=== PATIENT | male | born 1985 | race Caucasian/White ===

== ENCOUNTER 2017-12-31 09:58 | Inpatient (IN) ==
[2017-12-31] MEDS ORDERED: Acetaminophen 325 MG Tablet PO ONE (11:32)
--- NOTE | 2017-12-31 11:56 | XR ---
EXAM DATE: 12/31/2017 11:49 AM EDT AGE/SEX: 32 years / Male INDICATIONS: . Shortness of breath, headache, bilateral chest pain, cough, and congestion. CLINICAL DATA: This is the patient's initial encounter. Patient reports that signs and symptoms have been present for 2 days and indicates a pain score of 5/10. MEDICAL/SURGICAL HISTORY: None. None. COMPARISON: No prior exams available for comparison. FINDINGS: PA and lateral views of the chest demonstrate the lungs to be symmetrically aerated without evidence of mass, infiltrate or effusion. The cardiomediastinal contours are unremarkable. Osseous structures are intact. CONCLUSION: Negative for acute process Electronically signed by: Cornell Edmonds MD 12/31/2017 11:54 AM EDT
--- NOTE | 2017-12-31 12:01 | ED ---
HPI General Chief complaint: Respiratory Symptoms Stated complaint: resp complaint/weak Time Seen by Provider: 12/31/17 11:27 Source: patient Mode of arrival: ambulatory Limitations: no limitations History of Present Illness HPI narrative: Patient is a 32 year old male who comes in complaining of cough and cold symptoms with fever and body aches. He says this started yesterday. He has not taken anything for his symptoms. He says his girlfriend was sick with similar symptoms. He says he has some pain to his chest when coughing. He denies abdominal pain, nausea or vomiting. He does admit to IVDA. He last used meth yesterday. He denies any shortness of breath. Severity is moderate. Related Data Home Medications Medication Instructions Recorded Confirmed No Known Home Medications 12/06/17 12/31/17 Allergies Allergy/AdvReac Type Severity Reaction Status Date / Time No Known Allergies Allergy Verified 12/31/17 11:29 Review of Systems ROS: all other systems reviewed are negative Constitutional Reports body ache(s), Reports chills and Reports fever(s) ENT Denies dizziness Cardiovascular Denies syncope Respiratory Reports cough Gastrointestinal Denies nausea and Denies vomiting Musculoskeletal Reports myalgias Integumentary/Breasts Denies lesions, Denies rash and Denies wounds Neurologic Denies focal weakness and Denies numbness PMFSH History History Provided By: Patient Medical History Medical History IVDU (intravenous drug user) (Acute) Patient denies medical problems (Acute) Social History Social History Substance History: Active Abuse Second Hand Smoke Exposure: No Smoking Status: Current every day smoker Tobacco Type: Cigarettes How Often Do You Have a Drink Containing Alcohol: Monthly or less Recent Travel in [facility] within the Last 8 Weeks: No Recent Out of Country Travel within the Last 8 Weeks: No Exam Narrative Exam Narrative: GENERAL: Awake and alert, in no acute distress. SKIN: Focused skin assessment warm/dry. No wounds or signs of infection. HEAD: Atraumatic. Normocephalic. EYES: Pupils equal and round. No scleral icterus. ENT: Mucous membranes pink and moist. NECK: Trachea midline. No JVD. CARDIOVASCULAR: Regular rate and rhythm. No murmur appreciated. RESPIRATORY: No accessory muscle use. Clear to auscultation. Breath sounds equal bilaterally. GASTROINTESTINAL: Abdomen soft, non-tender, nondistended. MUSCULOSKELETAL: No obvious deformities. No clubbing. No cyanosis. No edema. NEUROLOGICAL: Awake and alert. No obvious cranial nerve deficits. Motor grossly within normal limits. Normal speech. PSYCHIATRIC: Appropriate mood and affect; insight and judgment normal. Course Initial Documented Vital Signs Temperature 100.1 F H 12/31/17 10:04 Pulse Rate 107 H 12/31/17 10:04 Respiratory Rate 18 12/31/17 10:04 Blood Pressure 101/54 L 12/31/17 10:04 Pulse Oximetry 97 12/31/17 10:04 Last Documented Vital Signs Temperature 100.1 F H 12/31/17 10:04 Pulse Rate 85 12/31/17 14:40 Respiratory Rate 16 12/31/17 14:40 Blood Pressure 81/43 L 12/31/17 14:40 Pulse Oximetry 100 12/31/17 14:40 Medical Decision Making MDM Narrative Medical decision making narrative: Patient is a 32 year old male who comes in complaining of body aches, cough, chest pain. He was found to be febrile and tachycardic on arrival. IV established, labs sent. Labs show WBC count of 15. CXR is negative, flu screen is negative. Patient given Tylenol, IVF, Rocephin and Vancomycin. Patient dropped his blood pressure with some response to fluids, however, remains hypotensive. Concern is for bacteremia and endocarditis. Patient to be admitted for further management. Medical Screen Exam Complete: Yes Emergency Medical Condition: Yes Differential Diagnosis Differential Diagnosis: Sepsis versus pneumonia versus influenza versus endocarditis versus bacteremia Medical Records Medical records reviewed: Yes I reviewed the patient's medical records. Lab Data Lab results reviewed: Yes I reviewed the patient's lab results. Result diagrams: 12/31/17 12:00 12/31/17 12:00 Lab Results 12/31/17 12/31/17 12/31/17 Range/Units 12:00 12:00 12:00 WBC 15.0 H (4.0-11.0) th/mm3 RBC 4.77 (4.50-5.90) mil/mm3 Hgb 14.4 (13.0-17.0) gm/dL Hct 41.7 (39.0-51.0) % MCV 87.4 (80.0-100.0) fL MCH 30.2 (27.0-34.0) pg MCHC 34.5 (32.0-36.0) % RDW 14.5 (11.6-17.2) % Plt Count 169 (150-450) th/mm3 MPV 7.8 (7.0-11.0) fL Neut % (Auto) 90.9 H (16.0-70.0) % Lymph % (Auto) 4.0 L (9.0-44.0) % [place] % (Auto) 4.6 (0.0-8.0) % Eos % (Auto) 0.4 (0.0-4.0) % Baso % (Auto) 0.1 (0.0-2.0) % Neut # (Auto) 13.7 H (1.8-7.7) th/mm3 Lymph # (Auto) 0.6 L (1.0-4.8) th/mm3 [place] # (Auto) 0.7 (0.0-0.9) th/mm3 Eos # (Auto) 0.1 (0.0-0.4) th/mm3 Baso # (Auto) 0.0 (0.0-0.2) th/mm3 WBC Differential . Differential Comment Auto diff final PT 11.7 H (9.8-11.6) sec INR 1.2 Ratio APTT 26.8 (24.3-30.1) sec Sodium 136 (136-145) meq/L Potassium 3.7 (3.5-5.1) meq/L Chloride 101 (98-107) meq/L Carbon Dioxide 25.9 (21.0-32.0) meq/L Anion Gap 9 (5-15) meq/L BUN 14 (7-18) mg/dL Creatinine 0.98 (0.60-1.30) mg/dL Estimated GFR 89 (>89) mL/min POC Glucose (68-110) mg/dl Random Glucose 111 H (74-106) mg/dL Lactic Acid (0.4-2.0) mmol/L Calcium 8.4 L (8.5-10.1) mg/dL Total Bilirubin 0.8 (0.2-1.0) mg/dL AST 33 (15-37) U/L ALT 36 (12-78) U/L Alkaline Phosphatase 81 (45-117) U/L Total Creatine Kinase 91 (39-308) U/L Troponin I Less than 0.02 L (0.02-0.05) ng/mL Total Protein 7.0 (6.4-8.2) g/dL Albumin 3.5 (3.4-5.0) g/dL 12/31/17 12/31/17 Range/Units 12:03 12:10 WBC (4.0-11.0) th/mm3 RBC (4.50-5.90) mil/mm3 Hgb (13.0-17.0) gm/dL Hct (39.0-51.0) % MCV (80.0-100.0) fL MCH (27.0-34.0) pg MCHC (32.0-36.0) % RDW (11.6-17.2) % Plt Count (150-450) th/mm3 MPV (7.0-11.0) fL Neut % (Auto) (16.0-70.0) % Lymph % (Auto) (9.0-44.0) % [place] % (Auto) (0.0-8.0) % Eos % (Auto) (0.0-4.0) % Baso % (Auto) (0.0-2.0) % Neut # (Auto) (1.8-7.7) th/mm3 Lymph # (Auto) (1.0-4.8) th/mm3 [place] # (Auto) (0.0-0.9) th/mm3 Eos # (Auto) (0.0-0.4) th/mm3 Baso # (Auto) (0.0-0.2) th/mm3 WBC Differential Differential Comment PT (9.8-11.6) sec INR Ratio APTT (24.3-30.1) sec Sodium (136-145) meq/L Potassium (3.5-5.1) meq/L Chloride (98-107) meq/L Carbon Dioxide (21.0-32.0) meq/L Anion Gap (5-15) meq/L BUN (7-18) mg/dL Creatinine (0.60-1.30) mg/dL Estimated GFR (>89) mL/min POC Glucose 121 H (68-110) mg/dl Random Glucose (74-106) mg/dL Lactic Acid 1.7 (0.4-2.0) mmol/L Calcium (8.5-10.1) mg/dL Total Bilirubin (0.2-1.0) mg/dL AST (15-37) U/L ALT (12-78) U/L Alkaline Phosphatase (45-117) U/L Total Creatine Kinase (39-308) U/L Troponin I (0.02-0.05) ng/mL Total Protein (6.4-8.2) g/dL Albumin (3.4-5.0) g/dL Imaging Data Radiologist's impression: Chest X-Ray 12/31/17 11:32 CONCLUSION: Negative for acute process ECG Data EKG Prior to Arrival: No Attestation: I personally reviewed and interpreted this ECG as follows: Interpretation: ECG shows normal sinus rhythm at a rate of 76, no ST elevation or depression Discharge Plan Discharge Disposition Patient Disposition: 30 Still Patient Discharge Condition Condition: Stable Discharge Details Diagnosis: Fever, SIRS (systemic inflammatory response syndrome), Drug abuse, IV Physicians Team ED Provider: Princess Preciado Primary Care Provider: Primary Care Liz Corrales Rxs /Orders / Referrals /Forms Prescriptions: No Action No Known Home Medications RF: 0 Discharge Interventions Interventions: Vital Signs Last Done: 12/31/17 14:40 Status ED Status: With Doctor
[2017-12-31] MEDS: Sod Chloride 0.9% Inj 1,000 ML IV.SIG SCH ×3 (12:15→14:56)
[2017-12-31 12:30] LABS: Baso % (Auto) 0.1 % (0.0-2.0); Eos # (Auto) 0.1 th/mm3 (0.0-0.4); Eos % (Auto) 0.4 % (0.0-4.0); Hematocrit 41.7 % (39.0-51.0); Hemoglobin 14.4 gm/dL (13.0-17.0); Lymph # (Auto) 0.6 th/mm3 (1.0-4.8); Mean Corpuscular HGB Conc 34.5 % (32.0-36.0); Mean Corpuscular Hemoglobin 30.2 pg (27.0-34.0); Mean Corpuscular Volume 87.4 fL (80.0-100.0); Mean Platelet Volume 7.8 fL (7.0-11.0); Mono # (Auto) 0.7 th/mm3 (0.0-0.9); Mono % (Auto) 4.6 % (0.0-8.0); Neut # (Auto) 13.7 th/mm3 (1.8-7.7); Neut % (Auto) 90.9 % (16.0-70.0); Platelet Count 169 th/mm3 (150-450); Red Blood Count 4.77 mil/mm3 (4.50-5.90); Red Cell Distribution Width 14.5 % (11.6-17.2)
[2017-12-31 12:43] LABS: Activated Partial Thrombo Time 26.8 sec (24.3-30.1); INR 1.2 Ratio; Prothrombin Time 11.7 sec (9.8-11.6)
[2017-12-31 12:53] LABS: Albumin 3.5 g/dL (3.4-5.0); Anion Gap 9 meq/L (5-15); Aspartate Aminotransferase 33 U/L (15-37); Blood Urea Nitrogen 14 mg/dL (7-18); Calcium 8.4 mg/dL (8.5-10.1); Carbon Dioxide 25.9 meq/L (21.0-32.0); Chloride 101 meq/L (98-107); Glomerular Filtration Rate 89 mL/min (>89); Glucose,Random 111 mg/dL (74-106); Potassium 3.7 meq/L (3.5-5.1); Sodium 136 meq/L (136-145)
[2017-12-31 12:57] LABS: Alanine Aminotransferase 36 U/L (12-78); Alkaline Phosphatase 81 U/L (45-117)
[2017-12-31 13:27] LABS: Creatine Kinase 91 U/L (39-308)
[2017-12-31] MEDS ORDERED: Vancomycin Inj 1,250 MG in Sodium Chlor 0.9% Inj 250 ML IV.SIG ONE (14:07)
[2017-12-31] MEDS ORDERED: Vancomycin Consult Pharmacy OTHER PRN (14:50)
[2017-12-31] MEDS ORDERED: Bisacodyl 10 MG Supp RECTAL PRN ×2 (14:54→14:59)
[2017-12-31] MEDS ORDERED: Sodium Phosphate Inj 30 MMOL in Sodium Chlor 0.9% Inj 250 ML IV.SIG PRN (14:56)
[2017-12-31] MEDS ORDERED: Potassium Chloride 25 MEQ Effervescent Tablet PO PRN (14:56)
[2017-12-31] MEDS ORDERED: Magnesium Sulfate Inj 4 GM in Sodium Chlor 0.9% Inj 92 ML IV.SIG PRN (14:56)
[2017-12-31] MEDS ORDERED: Magnesium Oxide 400 MG Tablet PO PRN (14:56)
[2017-12-31] MEDS ORDERED: Potassium Phosphate Inj 30 MMOL in Sodium Chlor 0.9% Inj 250 ML IV.SIG PRN (14:56)
[2017-12-31] MEDS ORDERED: Magnesium Sulfate Inj 2 GM in Sodium Chlor 0.9% Inj 96 ML IV.SIG PRN (14:56)
[2017-12-31] MEDS ORDERED: Potassium Chlor 20 mEq Premix 20 MEQ/100 ML PIGGYBACK IV.SIG PRN ×2 (14:56)
[2017-12-31] MEDS ORDERED: Potassium Phosphate 500 MG Soluble Tablet PO PRN ×2 (14:56)
[2017-12-31] MEDS ORDERED: Potassium Chlor 40 mEq Premix 40 MEQ/100 ML PIGGYBACK IV.SIG PRN ×2 (14:56)
[2017-12-31] MEDS ORDERED: Dextrose 50% in Water 50 ML Vial IV.PUSH PRN (14:58)
[2017-12-31] MEDS ORDERED: Acetaminophen 325 MG Tablet PO PRN (14:59)
[2017-12-31] MEDS ORDERED: Morphine Sulfate Inj 2 MG/ML Vial IV.PUSH PRN (14:59)
[2017-12-31] MEDS ORDERED: Heparin - SQ 10,000 UNITS/ML Vial SQ SCH (15:00)
[2017-12-31] MEDS ORDERED: Phenylephrine Inj 160 MG in Sodium Chlor 0.9% Inj 484 ML IV.CONT PRN (15:01)
[2017-12-31 15:14] LABS: ABG Base Excess 0.2 mmol/L (-2-2); ABG PCO2 39 mmHg (38-42); ABG PO2 249 mmHg (61-120)
[2017-12-31 15:26] LABS: Magnesium 1.7 mg/dL (1.5-2.5); Phosphorus 2.1 mg/dL (2.5-4.9)
[2017-12-31] MEDS: Sod Chloride 0.9% Inj 1,000 ML IV.CONT SCH (15:30)
--- NOTE | 2017-12-31 15:43 | P.HPCC ---
History of Present Illness Service: Critical care medicine Primary Care Physician: No Primary Care Physician Chief Complaint: Weakness History of Present Illness: This is a 32 year old male. Date of admission 12/29/2017. Past medical history includes hepatitis C/currently untreated. Today presented to [facility] ED with somatic complaints of nonproductive cough and cold symptoms with fever and body aches. He says this started yesterday. He has not taken anything for his symptoms. He says his girlfriend was sick with similar symptoms and was actually admitted to the hospital overnight. He says he has some pain to his chest when coughing. He denies abdominal pain, nausea or vomiting. He does admit to IVDA. He last used meth yesterday. There are track valdivia in his left upper extremity in the antecubital regions. These are not erythematous or warm. He denies any shortness of breath. Severity is moderate Chest x-ray revealed no acute cardiopulmonary findings. White blood cell count was 15,000. Lactate was 1.7. Patient received ceftriaxone and vancomycin in the ED. Patient was hypotensive and received 3 L normal saline with a current blood pressure 112/69. He currently feels better at the present time. We are asked to evaluate Inpatient Certification: I certify that the inpatient services were ordered in accordance with Medicare regulations governing the order. This includes certification that hospital inpatient services are reasonable and necessary and in the case of services not specified as inpatient-only under 42 CFR 419.22(n), that they are appropriately provided as inpatient services in accordance to with the 2-midnight benchmark under 43 CFR 412.3(e) Estimated Total Length of Stay (Days): 8 Plans for Post Hospital Care: Not yet determined Review of Systems Constitutional: Reports body ache(s), Reports chills, Reports excessive sweating , Reports fatigue, Reports fever(s), Reports headache(s), Denies anorexia, Denies daytime sleepiness Eyes: Denies blind spots, Denies blurry vision Ears, Nose, Mouth, and Throat: Reports headache(s), Denies abnormal hearing, Denies difficulty swallowing Cardiovascular: Denies chest pain, Denies chest pain at rest, Denies shortness of breath with activity, Denies shortness of breath when lying down, Denies shortness of breath causing sudden awakening Respiratory: Reports chest congestion, Reports cough, Denies change in phlegm color, Denies coughing up blood Gastrointestinal: Denies abdominal pain, Denies nausea Genitourinary: Denies difficulty urinating Musculoskeletal: Denies abnormal walking, Denies back pain Skin/Breast: Denies acne, Denies bleeding lesions, Denies boil Neurologic: Denies abnormal hearing, Denies frequent falls Psychiatric: Reports anxiety, Denies behavioral changes, Denies memory loss Endocrine: Reports cold intolerance, Reports excessive sweating Hematologic/Lymphatic: Denies easy bleeding Allergic/Immunologic: Denies GI upset with certain foods PMFSH - History History Provided By: Patient - Medical History Medical History: Medical History (Last Updated 12/31/17 @ 15:48 by Gokul Sky MD) Hepatitis C IVDU (intravenous drug user) Patient denies medical problems - Surgical History Surgical History: Surgical History (Last Updated 12/31/17 @ 15:49 by Gokul Sky MD) No pertinent past surgical history - Family History Family History: Family History (Last Updated 12/31/17 @ 15:50 by Gokul Sky MD) Other Family history non-contributory - Tobacco History Second Hand Smoke Exposure: No Tobacco Use In Past 30 Days: Yes Smoking Status: Current every day smoker Tobacco Type: Cigarettes - Alcohol History How Often Do You Have a Drink Containing Alcohol: Monthly or less - Substance Use History Substance History: Active Abuse - Substance Use Type Heroin Status: Active Route Used: Intravenously Reason for Use: Get High - Travel History Recent Travel in the [place] Within the Last 8 Weeks: No Recent Travel Out of the Country Within the Last 8 Weeks: No - Immunization History Tetanus Immunization: Unsure Hx Influenza Vaccine This Season: No Medications and Allergies Active Medications: Active Medications Acetaminophen (Tylenol) 650 mg PO Q6H PRN PRN Reason: PAIN 1-10 AND/OR FEVER >101F Hydrocodone Bitart/Acetaminophen (Elmo 5/325) 1 tab PO Q4H PRN PRN Reason: PAIN SCALE 1 TO 5 Al Hydroxide/Mg Hydroxide (Milk Of Magnesia Liq) 30 ml PO Q12H PRN PRN Reason: Mild Constipation Albuterol (Albuterol Neb (Prn)) 2.5 mg NEB Q2HR NEB PRN PRN Reason: DYSPNEA Albuterol (Duoneb Neb ([place])) 1 ampul NEB Q4HR NEB [place] Last Admin: 12/31/17 15:39 Dose: 1 ampul Bisacodyl (Dulcolax Supp) 10 mg RECTAL DAILY PRN PRN Reason: SEVERE CONSITIPATION Chlorhexidine Gluconate (Chlorhexidine 2% Cloth) 3 pack TOPICAL DAILY@0400 [place] Stop: 01/06/18 03:59 Chlorhexidine Gluconate (Chlorhexidine 2% Cloth) 3 pack TOPICAL DAILY@0400 PRN PRN Reason: Extra cloth needed Stop: 01/06/18 03:59 Dextrose (D50w Vial) 50 ml IV.PUSH UNSCH PRN PRN Reason: PER HYPOGLYCEMIA PROTOCOL Famotidine (Pepcid) 20 mg PO BID [place] Famotidine (Pepcid Pf Inj) 20 mg IV.PUSH Q12HR [place] Glucagon (Glucagon Inj) 1 mg OTHER PRN PRN PRN Reason: for Hypoglycemia Protocol Heparin Sodium (Porcine) (Heparin Inj) 5,000 units SQ Q12H [place] Sodium Chloride (Ns Inj) 1,000 mls @ 0 mls/hr IV.SIG .Q0M [place] Last Infusion: 12/31/17 13:05 Dose: Infused Sodium Chloride (Ns Inj) 1,000 mls @ 0 mls/hr IV.SIG BOLUS [facility] Stop: 01/01/18 14:16 Last Admin: 12/31/17 14:56 Dose: 1,000 mls/hr Piperacillin/Tazobactam/Dextrose (Zosyn 4.5 Gm Premix) 4.5 gm in 100 mls @ 200 mls/hr IV.SIG Q6H [place] Magnesium Sulfate 4 gm/ Sodium (Chloride) 100 mls @ 50 mls/hr IV.SIG UNSCH PRN PRN Reason: For Magnesium 0.9 - 1.1 mg/dL Magnesium Sulfate 2 gm/ Sodium (Chloride) 100 mls @ 50 mls/hr IV.SIG UNSCH PRN PRN Reason: For Magnesium 1.2 - 1.6 mg/dL Potassium Chloride (Kcl 40 Meq Premix Inj) 40 meq in 100 mls @ 25 mls/hr IV.SIG Q2H PRN PRN Reason: For Potassium 2.8 - 3.2 mEq/L Potassium Chloride (Kcl 20 Meq Premix Inj) 20 meq in 100 mls @ 50 mls/hr IV.SIG Q2H PRN PRN Reason: For Potassium 3.3 - 3.5 mEq/L Potassium Chloride (Kcl 40 Meq Premix Inj) 40 meq in 100 mls @ 25 mls/hr IV.SIG UNSCH PRN PRN Reason: For Potassium 3.3 - 3.5 mEq/L Potassium Chloride (Kcl 20 Meq Premix Inj) 20 meq in 100 mls @ 50 mls/hr IV.SIG Q2H PRN PRN Reason: For Potassium 2.8 - 3.2 mEq/L Sodium Phosphate 30 mmol/ (Sodium Chloride) 260 mls @ 42 mls/hr IV.SIG UNSCH PRN PRN Reason: For Phosphorus < 2.5 mg/dL Potassium Phosphate 30 mmol/ (Sodium Chloride) 260 mls @ 42 mls/hr IV.SIG UNSCH PRN PRN Reason: SEE LABEL COMMENTS Sodium Chloride (Ns Inj) 1,000 mls @ 84 mls/hr IV.CONT .[id number] [facility] Phenylephrine HCl 160 mg/ (Sodium Chloride) 500 mls @ 7.5 mls/hr IV.CONT TITRATE PRN; Protocol PRN Reason: See protol Insulin Aspart (Novolog Insulin Correctional Sugar Inj) 0 unit SQ ACHS [place]; Protocol Lactulose (Lactulose Liq) 30 ml PO DAILY PRN PRN Reason: SEVERE CONSITIPATION Magnesium Oxide (Mag-Ox) 800 mg PO UNSCH PRN PRN Reason: For Magnesium 1.2 - 1.6 mg/dL Morphine Sulfate (Morphine Inj) 2 mg IV.PUSH Q2H PRN PRN Reason: PAIN SCALE 6 TO 10 Ondansetron HCl (Zofran Inj) 4 mg IV.PUSH Q6H PRN PRN Reason: NAUSEA OR VOMITING Pantoprazole Sodium (Protonix Inj) 40 mg IV.PUSH DAILY [facility] Pharmacy Profile Note (Vancomycin Consult Pharmacy) 1 each OTHER UNSCH PRN PRN Reason: Pharmacy to dose Potassium Bicarb/Potassium Chloride (K-Lyte Cl Eff) 50 meq PO UNSCH PRN PRN Reason: For Potassium 3.3 - 3.5 mEq/L Potassium Phosphate (K-Phos Original) 2,000 mg PO Q4H PRN PRN Reason: Phosphorus Less Than 2.5 mg/dL Potassium Phosphate (K-Phos Original) 2,000 mg PO UNSCH PRN PRN Reason: SEE LABEL COMMENTS Senna/Docusate Sodium (Barbara-Colace) 1 tab PO BID [facility] Sennosides (Senokot) 17.2 mg PO Q12H PRN PRN Reason: Moderate Constipation Sodium Chloride (Ns Flush) 2 ml IV.FLUSH BID [place] Sodium Chloride (Ns Flush) 2 ml IV.FLUSH PRN PRN PRN Reason: FLUSH AFTER USING IV ACCESS Terbutaline Sulfate (Brethine Inj) 1 mg SQ UNSCH PRN PRN Reason: For Extravasation Allergies Allergy/AdvReac Type Severity Reaction Status Date / Time No Known Allergies Allergy Verified 12/31/17 11:29 Home Medications Medication Instructions Recorded Confirmed Type No Known Home Medications 12/06/17 12/31/17 History Results - Labs CBC & Chem 7: 12/31/17 12:00 12/31/17 12:00 Labs: Short CBC 12/31/17 Range/Units 12:00 WBC 15.0 H (4.0-11.0) th/mm3 Hgb 14.4 (13.0-17.0) gm/dL Hct 41.7 (39.0-51.0) % Plt Count 169 (150-450) th/mm3 BMP 12/31/17 12:00 Sodium 136 Potassium 3.7 Chloride 101 Carbon Dioxide 25.9 BUN 14 Creatinine 0.98 Calcium 8.4 L Cardiac Enzymes 12/31/17 Range/Units 12:00 Total Creatine Kinase 91 (39-308) U/L Troponin I Less than 0.02 L (0.02-0.05) ng/mL Liver Function 12/31/17 Range/Units 12:00 Total Bilirubin 0.8 (0.2-1.0) mg/dL AST 33 (15-37) U/L ALT 36 (12-78) U/L Alkaline Phosphatase 81 (45-117) U/L Albumin 3.5 (3.4-5.0) g/dL - Imaging Impressions Chest X-Ray 12/31/17 11:32 CONCLUSION: Negative for acute process Exam Vital signs: Vital Signs 12/31/17 10:04 12/31/17 12:22 12/31/17 12:27 Temperature 100.1 F H Pulse Rate 107 H 80 Respiratory Rate 18 24 Blood Pressure 101/54 L 105/53 L Pulse Oximetry 97 99 99 12/31/17 13:00 12/31/17 14:00 12/31/17 14:24 Temperature Pulse Rate 85 85 83 Respiratory Rate 20 20 18 Blood Pressure 91/52 L 77/43 L 81/44 L Pulse Oximetry 100 100 100 12/31/17 14:40 12/31/17 14:55 12/31/17 15:19 Temperature Pulse Rate 85 74 81 Respiratory Rate 16 16 16 Blood Pressure 81/43 L 88/48 L 88/48 L Pulse Oximetry 100 98 99 Intake & Output 12/30/17 12/31/17 12/31/17 18:59 06:59 18:59 Intake Total 2099 Balance 2099 Weight 80.739 kg Intake: IV 2099 NS Inj 1,000 ML @ Wide Open IV. 1999 SIG BOLUS [place] Rx#:[id number] Rocephin Inj 2,000 MG In NS Inj 100 / 100 100 ML @ 200 mls/hr IV.SIG ONCE ONE Rx#:[id number] - Constitutional no acute distress - Routine HEENT Exam Head: Present: normocephalic, atraumatic Eye: Present: EOMI, PERRL, normal accommodation ENT: Present: mucous membranes moist - Routine Neck Exam Present: supple, full ROM. Absent: JVD, carotid bruit - Routine Chest/Breast/Axilla Exam Chest wall: Absent: tenderness, mass Breast: Absent: tenderness Axillae: Absent: lymphadenopathy - Routine Respiratory Exam Present: CTA bilaterally. Absent: rhonchi, stridor - Routine Cardiovascular Exam Present: RRR, S1, S2. Absent: murmur - Routine Abdominal Exam Present: soft, normoactive bowel sounds - Routine Extremities Exam Absent: cyanosis, clubbing, edema - Routine Skin Exam Present: intact, scars. Absent: cyanosis - Routine Neurological Exam Present: alert, oriented X3, CN II-XII intact. Absent: sensory deficit, motor deficit Septic Shock Reassessment Septic shock perfusion: reassessment completed Caprini VTE Risk Assessment Caprini VTE Risk Assessment: No/Low Risk (score <= 1) Caprini Risk Assessment Model: Point Value = 1 Point Value = 2 Point Value = 3 Point Value = 5 Age 41-60 Minor surgery BMI > 25 kg/m2 Swollen legs Varicose veins or History of unexplained or recurrent spontaneous Oral contraceptives or hormone replacement Sepsis (< 1 month) Serious lung disease, including pneumonia (< 1 month) Abnormal pulmonary function Acute myocardial infarction Congestive heart failure (< 1 month) History of inflammatory bowel disease Medical patient at bed rest Age 61-74 Arthroscopic surgery Major open surgery (> 45 min) Laparoscopic surgery (> 45 min) Malignancy Confined to bed (> 72 hours) Immobilizing plaster cast Central venous access Age >= 75 History of VTE Family history of VTE Factor V Leiden Prothrombin [id number] Lupus anticoagulant Anticardiolipin antibodies Elevated serum homocysteine Heparin-induced thrombocytopenia Other congenital or acquired thrombophilia Stroke (< 1 month) Elective arthroplasty Hip, pelvis, or leg fracture Acute spinal cord injury (< 1 month) Prophylaxis Regimen: Total Risk Factor Score Risk Level Prophylaxis Regimen 0-1 Low Early ambulation 2 Moderate Order ONE of the following: *Sequential Compression Device (SCD) *Heparin 5000 units SQ BID 3-4 Higher Order ONE of the following medications: *Heparin 5000 units SQ TID *Enoxaparin/Lovenox 40 mg SQ daily (WT < 150 kg, CrCl > 30 mL/min) *Enoxaparin/Lovenox 30 mg SQ daily (WT < 150 kg, CrCl > 10-29 mL/min) *Enoxaparin/Lovenox 30 mg SQ BID (WT < 150 kg, CrCl > 30 mL/min) AND/OR *Sequential Compression Device (SCD) 5 or more Highest Order ONE of the following medications: *Heparin 5000 units SQ TID (Preferred with Epidurals) *Enoxaparin/Lovenox 40 mg SQ daily (WT < 150 kg, CrCl > 30 mL/min) *Enoxaparin/Lovenox 30 mg SQ daily (WT < 150 kg, CrCl > 10-29 mL/min) *Enoxaparin/Lovenox 30 mg SQ BID (WT < 150 kg, CrCl > 30 mL/min) AND *Sequential Compression Device (SCD) Assessment and Plan - Assessment and Plan Plan: Neuro/Psych: History of IV drug use -methamphetamines Acetaminophen 650 mg by mouth every 6 hours as needed fever Hydrocodone/acetaminophen 5/25 1 tablet every 4 hours as needed pain 1 through 5 morphine sulfate 2 mg IV every 2 hours as needed pain 6 or 10 CV: Hypotension likely septic shock Lactic acid 1.7 3 L crystalloid in ED. Currently on normal saline at 84 cc an hour Cycle lactates until cleared Currently not requiring any vasopressors 2D echocardiogram ordered to rule out endocarditis Resp: Tobaccoism Nasal cannula to maintain saturations greater than equal to 92% Incentive spirometry while awake Chest x-ray revealed no acute cardia bony findings Self evaluation booklet provided when appropriate GI: Hepatitis C LFT is within normal limits Patient evaluation : No indication for Seras catheter Endo: Sliding scale insulin with Accu-Cheks to maintain euglycemia/before meals at bedtime low protocol aspart insulin Renal: Creatinine currently within normal limits Monitor urine output Accurate I's and O's Heme: Leukocytosis Monitor CBC daily. Follow trends No indication for the transfusion of blood products at this time ID: Sepsis Received ceftriaxone and vancomycin ED. Start sepsis unknown source with piperacillin/tazobactam and is vancomycin Blood cultures 2 pending. Influenza negative. UA pending. Sputum pending FEN: Replace electrolytes as clinically indicated per ICU likely protocol MSK: PT evaluate and treat Access -Utilize peripheral IV. Central line if indicated Prophylaxis -GI -pantoprazole -DVT -SCDs/heparin subcu Level 3 admission
[2017-12-31] MEDS ORDERED: Piperacil/Tazo 4.5 GM Premix 4.5 GM/100 ML BAG IV.SIG SCH (16:00)
[2017-12-31 16:50] LABS: Bilirubin,Urine Negative (Negative); Clarity,Urine Clear (Clear); Color,Urine Straw (Yellw/Straw); Glucose,Urine (UA) Negative (Negative); Leukocyte Esterase,Urine Negative (Negative); Mucus,Urine Few /lpf (Occasional); Nitrite,Urine Negative (Negative); Specific Gravity,Urine 1.004 (1.002-1.035)
[2017-12-31] MEDS: Insulin NovoLOG Aspart Correctional Sugar Inj SQ SCH ×2 (19:24→20:54)
[2017-12-31] MEDS: Famotidine 20 MG Tablet PO SCH (20:53)
[2017-12-31] MEDS: Piperacil/Tazo 4.5 GM Premix 4.5 GM/100 ML BAG IV.SIG SCH (20:53)
[2017-12-31] MEDS: Heparin - SQ 10,000 UNITS/ML Vial SQ SCH (20:53)
[2017-12-31] MEDS: Senna/Docusate Sodium 8.6/50 MG Tablet PO SCH (20:54)
[2017-12-31] MEDS: Famotidine PF Inj 20 MG/2 ML Vial IV.PUSH SCH (20:54)
[2017-12-31] MEDS ORDERED: Senna/Docusate Sodium 8.6/50 MG Tablet PO SCH (21:00)
[2017-12-31] MEDS: Vancomycin Inj 1,500 MG in Sodium Chlor 0.9% Inj 500 ML IV.SIG SCH (22:55)
[2018-01-01] MEDS: Piperacil/Tazo 4.5 GM Premix 4.5 GM/100 ML BAG IV.SIG SCH ×4 (02:49→20:57)
[2018-01-01] MEDS: Sod Chloride 0.9% Inj 1,000 ML IV.CONT SCH ×3 (03:08→16:30)
[2018-01-01] MEDS ORDERED: Chlorhexidine Gluconate 2% 1 Pack (2 Cloths) TOPICAL SCH (04:00)
[2018-01-01] MEDS ORDERED: Chlorhexidine Gluconate 2% 1 Pack (2 Cloths) TOPICAL PRN ×2 (04:00)
[2018-01-01 04:52] LABS: Baso % (Auto) 0.3 % (0.0-2.0); Eos # (Auto) 0.2 th/mm3 (0.0-0.4); Eos % (Auto) 2.9 % (0.0-4.0); Hematocrit 38.1 % (39.0-51.0); Hemoglobin 12.8 gm/dL (13.0-17.0); Lymph # (Auto) 1.8 th/mm3 (1.0-4.8); Lymph % (Auto) 23.8 % (9.0-44.0); Mean Corpuscular HGB Conc 33.5 % (32.0-36.0); Mean Corpuscular Volume 89.6 fL (80.0-100.0); Mean Platelet Volume 7.8 fL (7.0-11.0); Mono # (Auto) 0.9 th/mm3 (0.0-0.9); Mono % (Auto) 11.5 % (0.0-8.0); Neut # (Auto) 4.7 th/mm3 (1.8-7.7); Neut % (Auto) 61.5 % (16.0-70.0); Platelet Count 140 th/mm3 (150-450); Red Blood Count 4.25 mil/mm3 (4.50-5.90); Red Cell Distribution Width 14.1 % (11.6-17.2); White Blood Count 7.7 th/mm3 (4.0-11.0)
[2018-01-01] MEDS: Chlorhexidine Gluconate 2% 1 Pack (2 Cloths) TOPICAL SCH (05:03)
[2018-01-01 05:04] LABS: Activated Partial Thrombo Time 28.1 sec (24.3-30.1); INR 1.2 Ratio; Prothrombin Time 12.1 sec (9.8-11.6)
[2018-01-01 05:26] LABS: Alanine Aminotransferase 53 U/L (12-78); Albumin 2.5 g/dL (3.4-5.0); Alkaline Phosphatase 63 U/L (45-117); Anion Gap 7 meq/L (5-15); Aspartate Aminotransferase 39 U/L (15-37); Blood Urea Nitrogen 11 mg/dL (7-18); Calcium 7.3 mg/dL (8.5-10.1); Carbon Dioxide 25.8 meq/L (21.0-32.0); Chloride 111 meq/L (98-107); Glomerular Filtration Rate Greater Than 89 mL/min (>89); Glucose,Random 102 mg/dL (74-106); Magnesium 1.8 mg/dL (1.5-2.5); Phosphorus 2.7 mg/dL (2.5-4.9); Potassium 3.8 meq/L (3.5-5.1); Sodium 144 meq/L (136-145); Total Protein 5.8 g/dL (6.4-8.2)
[2018-01-01] MEDS: Vancomycin Inj 1,500 MG in Sodium Chlor 0.9% Inj 500 ML IV.SIG SCH ×3 (06:25→23:21)
--- NOTE | 2018-01-01 09:37 | P.PNCC ---
Subjective Subjective Remarks/Hospital Course: This is a 32 year old male. Date of admission 12/31/2017. Past medical history includes hepatitis C/currently untreated. Today presented to [facility] ED with somatic complaints of nonproductive cough and cold symptoms with fever and body aches. He says this started yesterday. He has not taken anything for his symptoms. He says his girlfriend was sick with similar symptoms and was actually admitted to the hospital overnight. He says he has some pain to his chest when coughing. He denies abdominal pain, nausea or vomiting. He does admit to IVDA. He last used meth yesterday. There are track valdivia in his left upper extremity in the antecubital regions. These are not erythematous or warm. He denies any shortness of breath. Severity is moderate Chest x-ray revealed no acute cardiopulmonary findings. White blood cell count was 15,000. Lactate was 1.7. Patient received ceftriaxone and vancomycin in the ED. Patient was hypotensive and received 3 L normal saline with a current blood pressure 112/69. He currently feels better at the present time. We are asked to evaluate. SUBJECTIVE: 01/01: Currently afebrile. White blood cell count is normalized. Pending blood culture results and 2D echocardiogram. Hemodynamically stable. Objective Vital Signs / I&O: Vital Signs 12/31/17 10:04 12/31/17 12:22 12/31/17 12:27 Temperature 100.1 F H Pulse Rate 107 H 80 Respiratory Rate 18 24 Blood Pressure 101/54 L 105/53 L Pulse Oximetry 97 99 99 12/31/17 13:00 12/31/17 14:00 12/31/17 14:24 Temperature Pulse Rate 85 85 83 Respiratory Rate 20 20 18 Blood Pressure 91/52 L 77/43 L 81/44 L Pulse Oximetry 100 100 100 12/31/17 14:40 12/31/17 14:55 12/31/17 15:19 Temperature Pulse Rate 85 74 81 Respiratory Rate 16 16 16 Blood Pressure 81/43 L 88/48 L 88/48 L Pulse Oximetry 100 98 99 12/31/17 15:30 12/31/17 17:00 12/31/17 18:00 Temperature 97.6 F 98.1 F 98.1 F Pulse Rate 70 99 H 75 Respiratory Rate 16 16 16 Blood Pressure 112/66 121/66 107/46 L Pulse Oximetry 98 98 98 12/31/17 19:00 12/31/17 21:26 12/31/17 21:27 Temperature 97.8 F Pulse Rate 71 58 L Respiratory Rate 22 18 Blood Pressure 109/58 L Pulse Oximetry 95 98 12/31/17 23:00 12/31/17 23:39 01/01/18 00:00 Temperature 97.8 F Pulse Rate 63 57 L 61 Respiratory Rate 22 12 22 Blood Pressure 108/55 L Pulse Oximetry 99 01/01/18 03:00 01/01/18 03:37 01/01/18 04:00 Temperature 97.9 F Pulse Rate 52 L 58 L Respiratory Rate 22 12 22 Blood Pressure 106/63 Pulse Oximetry 98 01/01/18 07:32 Temperature Pulse Rate 61 Respiratory Rate 18 Blood Pressure Pulse Oximetry 97 Intake & Output 12/31/17 01/01/18 01/01/18 18:59 06:59 18:59 Intake Total 3830 / 3830 2207.5 / 2207.5 Output Total 850 / 850 700 / 700 Balance 2980 / 2980 1507.5 / 1507.5 Weight 80.739 kg 78 kg Intake: IV 3350 / 3350 1727.5 / 1727.5 NS Inj 1,000 ML @ 84 mls/hr IV. 1000 / 1000 CONT .[id number] [facility] Rx#:[id number] Zosyn 4.5 GM Premix 4.5 gm In 200 / 200 100 ml @ 200 mls/hr IV.SIG Q6H [facility] Rx#:[id number] NS Inj 1,000 ML @ Wide Open IV. 3000 / 3000 SIG BOLUS [facility] Rx#:[id number] Vancomycin Inj 1,250 MG In NS 250 / 250 12.5 / 12.5 Inj 250 ML @ 250 mls/hr IV.SIG ONCE ONE Rx#:[id number] Vancomycin Inj 1,500 MG In NS 515 / 515 Inj 500 ML @ 250 mls/hr IV.SIG Q8H [facility] Rx#:[id number] Rocephin Inj 2,000 MG In NS Inj 100 / 100 100 ML @ 200 mls/hr IV.SIG ONCE ONE Rx#:[id number] Oral 480 / 480 480 / 480 Output: Urine 850 / 850 700 / 700 Other: Date of Last Bowel Movement 12/30/17 12/31/17 Result Diagrams: 01/01/18 04:37 01/01/18 04:37 Other Results: Microbiology 12/31/17 12:35 Nasal Wash Influenza Types A,B Antigen - Final Negative for FLU A and B antigen Infection due to influenza A or B cannot be ruled out since the antigen present in the sample may be below the detection limit of the test. Imaging: Chest X-Ray 12/31/17 11:32 CONCLUSION: Negative for acute process Objective Remarks: GENERAL: 32-year-old female currently resting in bed on room air no acute distress SKIN: Warm and dry. Multiple tattoos. Track valdivia involving the left upper extremity at the antecubital region HEAD: Atraumatic. Normocephalic. EYES: Pupils equal and round. No scleral icterus. No injection or drainage. ENT: No nasal bleeding or discharge. Mucous membranes pink and moist. NECK: Trachea midline. No JVD. CARDIOVASCULAR: Regular rate and rhythm. RESPIRATORY: No accessory muscle use. Clear to auscultation. Breath sounds equal bilaterally. GASTROINTESTINAL: Abdomen soft, non-tender, nondistended. Hepatic and splenic margins not palpable. MUSCULOSKELETAL: Extremities without clubbing, cyanosis, or edema. No obvious deformities. NEUROLOGICAL: Awake and alert. No obvious cranial nerve deficits. Motor grossly within normal limits. Five out of 5 muscle strength in the arms and legs. Normal speech. PSYCHIATRIC: Appropriate mood and affect; insight and judgment normal. Assessment and Plan - Assessment and Plan Plan: Neuro/Psych: History of IV drug use -methamphetamines Acetaminophen 650 mg by mouth every 6 hours as needed fever Hydrocodone/acetaminophen 5/25 1 tablet every 4 hours as needed pain 1 through 5 Morphine sulfate 2 mg IV every 2 hours as needed pain 6 or 10 CV: Hypotension likely septic shock Lactic acid 1.7 3 L crystalloid in ED. Currently on normal saline at 84 cc an hour. Will discontinue today Cycle lactates until cleared Currently not requiring any vasopressors 2D echocardiogram ordered to rule out endocarditis Resp: Tobaccoism Nasal cannula to maintain saturations greater than equal to 92% Incentive spirometry while awake Chest x-ray revealed no acute cardia bony findings Self evaluation booklet provided when appropriate GI: Hepatitis C LFT is within normal limits Patient evaluation : No indication for Sears catheter Endo: Sliding scale insulin with Accu-Cheks to maintain euglycemia/before meals at bedtime low protocol aspart insulin Renal: Creatinine currently within normal limits Monitor urine output Accurate I's and O's Heme: Monitor CBC daily. Follow trends No indication for the transfusion of blood products at this time ID: Sepsis Received ceftriaxone and vancomycin ED. Start sepsis unknown source with piperacillin/tazobactam and is vancomycin Blood cultures 2 pending. Influenza negative. UA pending. Sputum pending FEN: Replace electrolytes as clinically indicated per ICU electrolyte protocol MSK: PT evaluate and treat Access -Utilize peripheral IV. Central line if indicated Prophylaxis -GI -pantoprazole -DVT -SCDs/heparin subcu Level 2 follow-up. Patient is stable from a critical care medicine standpoint. Assign care to hospitalist in a.m. 01/02. Code Status: Full code
[2018-01-01] MEDS: Insulin NovoLOG Aspart Correctional Sugar Inj SQ SCH ×4 (10:22→21:13)
[2018-01-01] MEDS: Heparin - SQ 10,000 UNITS/ML Vial SQ SCH ×2 (10:23→20:58)
[2018-01-01] MEDS: Famotidine 20 MG Tablet PO SCH ×2 (10:24→20:57)
[2018-01-01] MEDS: Famotidine PF Inj 20 MG/2 ML Vial IV.PUSH SCH ×2 (10:24→20:57)
[2018-01-01] MEDS: Senna/Docusate Sodium 8.6/50 MG Tablet PO SCH ×2 (10:25→20:57)
[2018-01-01] MEDS: Pantoprazole Inj 40 MG Vial IV.PUSH SCH (10:25)
--- NOTE | 2018-01-01 11:48 | ECG ---
Date Performed: 12/31/2017 Time Performed: 12:03:17 PTAGE: 32 years EKG: Sinus rhythm POSSIBLE RIGHT VENTRICULAR CONDUCTION DELAY BORDERLINE ECG Since the PREVIOUS TRACING , no significant change noted PREVIOUS TRACIN12/06/2017 12.24 DOCTOR: Gabrielle Schroeder Interpretating Date/Time 01/01/2018 11:45:32
[2018-01-01] MEDS ORDERED: Pharmacy Ordered Lab Info OTHER ONE (14:45)
[2018-01-01] MEDS: Sod Chloride 0.9% Inj 1,000 ML IV.SIG SCH ×2 (16:27→16:28)
--- NOTE | 2018-01-01 16:30 | ECHRPT ---
Indication: POSS SEPSIS, ENDOCARDITIS CONCLUSIONS Normal left ventricular size. Wall thickness is normal. The left ventricular systolic function is normal with an estimated ejection fraction in the range of 55-60%. Mild mitral valve regurgitation. Mobile echodensity is noted on the mitral valve consistent with vegetation. The estimated pulmonary arterial pressure is 29.4 mmHg. BP: / HR: Rhythm: Sinus MEASUREMENTS (Male / Female) Normal Values Technical Quality:Fair 2D ECHO LV Diastolic Diameter PLAX 4.9 cm 4.2 - 5.9 / 3.9 - 5.3 cm LV Systolic Diameter PLAX 3.7 cm IVS Diastolic Thickness 0.8 cm 0.6 - 1.0 / 0.6 - 0.9 cm LVPW Diastolic Thickness 0.8 cm 0.6 - 1.0 / 0.6 - 0.9 cm LV Relative Wall Thickness 0.3 RV Internal Dim ED PLAX 2.7 cm LVOT Diameter 2.4 cm Aortic Root Diameter 3.7 cm LA Systolic Diameter LX 3.5 cm 3.0 - 4.0 / 2.7 - 3.8 cm M-MODE AV Cusp Separation MM 2.3 cm DOPPLER AV Peak Velocity 108.0 cm/s AV Peak Gradient 4.7 mmHg AV Mean Gradient 2.0 mmHg AV Velocity Time Integral 20.0 cm LVOT Peak Velocity 73.7 cm/s LVOT Peak Gradient 2.2 mmHg LVOT Velocity Time Integral 14.7 cm AV Area Cont Eq vti 3.3 cm AV Area Cont Eq pk 3.1 cm Mitral E Point Velocity 93.3 cm/s Mitral A Point Velocity 31.1 cm/s Mitral E to A Ratio 3.0 TR Peak Velocity 220.0 cm/s TR Peak Gradient 19.4 mmHg Right Atrial Pressure 10.0 mmHg Pulmonary Artery Systolic Pressu 29.4 mmHg Right Ventricular Systolic Press 29.4 mmHg PV Peak Velocity 72.9 cm/s PV Peak Gradient 2.1 mmHg FINDINGS LEFT VENTRICLE Normal left ventricular size. Wall thickness is normal. The left ventricular systolic function is normal with an estimated ejection fraction in the range of 55-60%. RIGHT VENTRICLE Normal right ventricular size and systolic function. LEFT ATRIUM The left atrial size is normal. RIGHT ATRIUM The right atrial size is normal. ATRIAL SEPTUM No atrial level shunt is demonstrated by color flow Doppler interrogation. AORTA The aortic root and proximal ascending aorta are normal in size on limited imaging. MITRAL VALVE Mild mitral valve regurgitation. Mobile echodensity is noted on the mitral valve consistent with vegetation. AORTIC VALVE Trileaflet aortic valve. No aortic valve stenosis or regurgitation. TRICUSPID VALVE Structurally normal tricuspid valve. No tricuspid valve stenosis or regurgitation. The estimated pulmonary arterial pressure is 29.4 mmHg. PULMONARY VALVE No pulmonary valve regurgitation or stenosis. VESSELS The inferior vena cava is normal in size. PERICARDIUM No pericardial effusion. Natanael Perrin MD, FACC, [facility] (Electronically Signed) Final Date:01 January 2018 16:29
[2018-01-02] MEDS: Piperacil/Tazo 4.5 GM Premix 4.5 GM/100 ML BAG IV.SIG SCH ×4 (02:27→20:17)
[2018-01-02] MEDS: Sod Chloride 0.9% Inj 1,000 ML IV.CONT SCH ×3 (03:24→17:45)
[2018-01-02] MEDS: Chlorhexidine Gluconate 2% 1 Pack (2 Cloths) TOPICAL SCH (03:27)
[2018-01-02] MEDS: Vancomycin Inj 1,500 MG in Sodium Chlor 0.9% Inj 500 ML IV.SIG SCH ×3 (06:00→22:08)
--- NOTE | 2018-01-02 06:01 | XR ---
EXAM DATE: 01/02/2018 5:45 AM EDT AGE/SEX: 32 years / Male INDICATIONS: Fever. CLINICAL DATA: This is the patient's subsequent encounter. Patient reports that signs and symptoms h ave been present for 2 days and indicates a pain score of 0/10. MEDICAL/SURGICAL HISTORY: None. None. COMPARISON: No prior exams available for comparison. FINDINGS: 2 AP views of the chest. The lungs are clear. Cardiomediastinal silhouette within normal l imits. No evidence of pleural effusion or pneumothorax. CONCLUSION: No acute cardiopulmonary disease identified. Electronically signed by: Oz Nickerson MD 01/02/2018 6:00 AM EDT
[2018-01-02 07:41] LABS: Baso % (Auto) 0.6 % (0.0-2.0); Eos # (Auto) 0.3 th/mm3 (0.0-0.4); Eos % (Auto) 4.7 % (0.0-4.0); Hematocrit 37.6 % (39.0-51.0); Hemoglobin 12.7 gm/dL (13.0-17.0); Lymph # (Auto) 1.7 th/mm3 (1.0-4.8); Lymph % (Auto) 27.1 % (9.0-44.0); Mean Corpuscular HGB Conc 33.8 % (32.0-36.0); Mean Corpuscular Volume 88.9 fL (80.0-100.0); Mean Platelet Volume 8.1 fL (7.0-11.0); Mono # (Auto) 0.8 th/mm3 (0.0-0.9); Mono % (Auto) 12.3 % (0.0-8.0); Neut # (Auto) 3.5 th/mm3 (1.8-7.7); Neut % (Auto) 55.3 % (16.0-70.0); Platelet Count 160 th/mm3 (150-450); Red Blood Count 4.23 mil/mm3 (4.50-5.90); Red Cell Distribution Width 14.2 % (11.6-17.2); White Blood Count 6.3 th/mm3 (4.0-11.0)
[2018-01-02 07:51] LABS: Alanine Aminotransferase 43 U/L (12-78); Albumin 2.6 g/dL (3.4-5.0); Anion Gap 8 meq/L (5-15); Aspartate Aminotransferase 19 U/L (15-37); Blood Urea Nitrogen 6 mg/dL (7-18); Calcium 7.9 mg/dL (8.5-10.1); Chloride 108 meq/L (98-107); Glomerular Filtration Rate Greater Than 89 mL/min (>89); Glucose,Random 98 mg/dL (74-106); Magnesium 1.9 mg/dL (1.5-2.5); Sodium 143 meq/L (136-145)
[2018-01-02 07:54] LABS: Alkaline Phosphatase 60 U/L (45-117); Phosphorus 3.4 mg/dL (2.5-4.9); Total Protein 6.1 g/dL (6.4-8.2)
[2018-01-02] MEDS: Insulin NovoLOG Aspart Correctional Sugar Inj SQ SCH ×2 (09:19→13:28)
[2018-01-02] MEDS: Heparin - SQ 10,000 UNITS/ML Vial SQ SCH ×2 (09:21→20:16)
[2018-01-02] MEDS: Famotidine 20 MG Tablet PO SCH ×2 (09:24→20:18)
[2018-01-02] MEDS: Pantoprazole Inj 40 MG Vial IV.PUSH SCH (09:25)
[2018-01-02] MEDS: Senna/Docusate Sodium 8.6/50 MG Tablet PO SCH ×2 (09:26→20:18)
[2018-01-02] MEDS: Famotidine PF Inj 20 MG/2 ML Vial IV.PUSH SCH ×2 (09:30→20:16)
--- NOTE | 2018-01-02 11:49 | P.PNIM ---
Subjective Interval history: Patient reports he is feeling much better today. He denies chest pain or shortness of breath. He still has a cough. Physical Exam Vital signs: Vital Signs 01/01/18 15:00 01/01/18 16:00 01/01/18 16:30 Temperature 98.7 F Pulse Rate 72 89 64 Respiratory Rate 16 18 Blood Pressure 121/62 Pulse Oximetry 96 01/01/18 17:45 01/01/18 20:00 01/01/18 23:54 Temperature 98.1 F 99.2 F Pulse Rate 65 81 73 Respiratory Rate 16 18 Blood Pressure 116/64 114/53 L Pulse Oximetry 99 01/02/18 00:00 01/02/18 04:00 01/02/18 07:00 Temperature 98.2 F 98.2 F Pulse Rate 63 69 Respiratory Rate 18 18 Blood Pressure 100/55 L 111/56 L Pulse Oximetry 99 97 98 01/02/18 08:00 Temperature 98.1 F Pulse Rate 56 L Respiratory Rate 16 Blood Pressure 113/58 L Pulse Oximetry 96 Intake & Output 01/01/18 01/02/18 01/02/18 18:59 06:59 18:59 Intake Total 3230 / 3230 1195 / 1195 Output Total 1300 / 1300 Balance 3230 / 3230 -105 / -105 Weight 78.7 kg Intake: IV 3230 / 3230 715 / 715 NS Inj 1,000 ML @ 84 mls/hr IV. 1000 / 1000 CONT .[id number] [facility] Rx#:[id number] Zosyn 4.5 GM Premix 4.5 gm In 200 / 200 200 / 200 100 ml @ 200 mls/hr IV.SIG Q6H [facility] Rx#:[id number] NS Inj 1,000 ML @ Wide Open IV. 1000 / 1000 SIG .Q0M [facility] Rx#:[id number] Vancomycin Inj 1,500 MG In NS 1030 / 1030 515 / 515 Inj 500 ML @ 250 mls/hr IV.SIG Q8H [facility] Rx#:[id number] Oral 480 / 480 Output: Urine 1300 / 1300 Other: # Voids 1 Date of Last Bowel Movement 12/31/17 Weight On Admission 78 kg Narrative: GENERAL: No acute distress. SKIN: Multiple track valdivia. HEAD: Normocephalic. EYES: No scleral icterus. No injection or drainage. NECK: Supple, trachea midline. No JVD or lymphadenopathy. CARDIOVASCULAR: Regular rate and rhythm without murmurs, gallops, or rubs. RESPIRATORY: Breath sounds equal bilaterally. No accessory muscle use. GASTROINTESTINAL: Abdomen soft, non-tender, nondistended. MUSCULOSKELETAL: No cyanosis, or edema. Results - Labs CBC & Chem 7: 01/02/18 06:54 01/02/18 06:54 Laboratory Results - last 24 hr 01/01/18 01/01/18 01/01/18 12:06 13:48 13:48 WBC RBC Hgb Hct MCV MCH MCHC RDW Plt Count MPV Neut % (Auto) Lymph % (Auto) [place] % (Auto) Eos % (Auto) Baso % (Auto) Neut # (Auto) Lymph # (Auto) [place] # (Auto) Eos # (Auto) Baso # (Auto) WBC Differential Differential Comment Sodium Potassium Chloride Carbon Dioxide Anion Gap BUN Creatinine Estimated GFR POC Glucose 120 H Random Glucose Lactic Acid 1.4 Calcium Phosphorus Magnesium Total Bilirubin AST ALT Alkaline Phosphatase Total Protein Albumin Vancomycin Trough 15.9 H 01/01/18 01/01/18 01/02/18 17:31 19:22 00:20 WBC RBC Hgb Hct MCV MCH MCHC RDW Plt Count MPV Neut % (Auto) Lymph % (Auto) [place] % (Auto) Eos % (Auto) Baso % (Auto) Neut # (Auto) Lymph # (Auto) [place] # (Auto) Eos # (Auto) Baso # (Auto) WBC Differential Differential Comment Sodium Potassium Chloride Carbon Dioxide Anion Gap BUN Creatinine Estimated GFR POC Glucose 110 Random Glucose Lactic Acid 1.9 0.9 Calcium Phosphorus Magnesium Total Bilirubin AST ALT Alkaline Phosphatase Total Protein Albumin Vancomycin Trough 01/02/18 01/02/18 01/02/18 06:53 06:54 06:54 WBC 6.3 RBC 4.23 L Hgb 12.7 L Hct 37.6 L MCV 88.9 MCH 30.0 MCHC 33.8 RDW 14.2 Plt Count 160 MPV 8.1 Neut % (Auto) 55.3 Lymph % (Auto) 27.1 [place] % (Auto) 12.3 H Eos % (Auto) 4.7 H Baso % (Auto) 0.6 Neut # (Auto) 3.5 Lymph # (Auto) 1.7 [place] # (Auto) 0.8 Eos # (Auto) 0.3 Baso # (Auto) 0.0 WBC Differential . Differential Comment Auto diff final Sodium 143 Potassium 4.0 Chloride 108 H Carbon Dioxide 27.0 Anion Gap 8 BUN 6 L Creatinine 0.88 Estimated GFR Greater than 89 POC Glucose Random Glucose 98 Lactic Acid 1.0 Calcium 7.9 L Phosphorus 3.4 Magnesium 1.9 Total Bilirubin 0.2 AST 19 ALT 43 Alkaline Phosphatase 60 Total Protein 6.1 L Albumin 2.6 L Vancomycin Trough Microbiology 12/31/17 12:00 Blood - Peripheral Aerobic Blood Culture - Preliminary No growth in 2 days 12/31/17 12:00 Blood - Peripheral Anaerobic Blood Culture - Final QNS - See aerobic report. 12/31/17 12:09 Blood - Peripheral Aerobic Blood Culture - Preliminary No growth in 2 days 12/31/17 12:09 Blood - Peripheral Anaerobic Blood Culture - Preliminary No growth in 2 days 01/01/18 09:00 Sputum - Expectorated Sputum Gram Stain - Final - Imaging Impressions Chest X-Ray 01/02/18 06:00 CONCLUSION: No acute cardiopulmonary disease identified. 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 His blood pressure improved and he was transferred to the Hospitalist service. Hypotension, likely secondary to septic shock: - Resolved after IV hydration - Concern for bacteremia or endocarditis in known active IVDU - Follow cultures and echo - Continue empiric Zosyn and Vanc History of IV drug use -methamphetamines - Patient counseled. Girlfriend in the bed with him also active user, obvious abscess on her hands which she states she will get evaluated in the ED today - No signs of withdrawal. DC Narcotics. Tobaccoism - Patient counseled Hepatitis C LFT is within normal limits Outpatient eval is recommended Prophylaxis -GI -pantoprazole -DVT -SCDs/heparin subcu
[2018-01-03] MEDS: Piperacil/Tazo 4.5 GM Premix 4.5 GM/100 ML BAG IV.SIG SCH ×2 (01:12→08:46)
[2018-01-03] MEDS: Sod Chloride 0.9% Inj 1,000 ML IV.CONT SCH ×2 (02:04→06:12)
[2018-01-03] MEDS: Chlorhexidine Gluconate 2% 1 Pack (2 Cloths) TOPICAL SCH (04:49)
[2018-01-03] MEDS: Vancomycin Inj 1,500 MG in Sodium Chlor 0.9% Inj 500 ML IV.SIG SCH (06:11)
[2018-01-03] MEDS: Famotidine PF Inj 20 MG/2 ML Vial IV.PUSH SCH ×2 (08:39→21:01)
[2018-01-03] MEDS: Senna/Docusate Sodium 8.6/50 MG Tablet PO SCH ×2 (08:40→21:00)
[2018-01-03] MEDS: Pantoprazole Inj 40 MG Vial IV.PUSH SCH (08:44)
[2018-01-03] MEDS: Heparin - SQ 10,000 UNITS/ML Vial SQ SCH ×2 (08:50→21:02)
[2018-01-03] MEDS: Famotidine 20 MG Tablet PO SCH ×2 (08:51→21:00)
--- NOTE | 2018-01-03 13:22 | P.PNIM ---
Subjective Interval history: Patient reports he is feeling much better today. He denies any fevers. Inquired about when he will be able to go home. Physical Exam Vital signs: Vital Signs 01/02/18 15:30 01/02/18 16:00 01/02/18 20:00 Temperature 98.3 F 97.5 F L Pulse Rate 54 L 51 L 52 L Respiratory Rate 16 20 Blood Pressure 117/59 L 115/69 Pulse Oximetry 98 98 01/03/18 00:00 01/03/18 04:00 01/03/18 08:00 Temperature 98 F 97.6 F 97.7 F Pulse Rate 52 L 56 L 51 L Respiratory Rate 20 20 18 Blood Pressure 110/59 L 115/59 L 108/54 L Pulse Oximetry 96 100 96 Intake & Output 01/02/18 01/03/18 01/03/18 18:59 06:59 18:59 Intake Total 4470 / 4470 2685 / 2685 615 / 615 Output Total 700 / 700 700 / 700 Balance 3770 / 3770 1984 / 1984 615 / 615 Weight 77.5 kg Intake: IV 3230 / 3230 2565 / 2565 615 / 615 NS Inj 1,000 ML @ 84 mls/hr IV. 1999 / 1999 1850 / 1850 CONT .[id number] [facility] Rx#:[id number] Zosyn 4.5 GM Premix 4.5 gm In 200 / 200 200 / 200 100 / 100 100 ml @ 200 mls/hr IV.SIG Q6H [facility] Rx#:[id number] Vancomycin Inj 1,500 MG In NS 1030 / 1030 515 / 515 515 / 515 Inj 500 ML @ 250 mls/hr IV.SIG Q8H [facility] Rx#:[id number] Oral 120 / 120 Other 1240 / 1240 Output: Urine 700 / 700 700 / 700 Other: Date of Last Bowel Movement 12/31/17 Narrative: GENERAL: No acute distress. SKIN: Multiple track valdivia. HEAD: Normocephalic. EYES: No scleral icterus. No injection or drainage. NECK: Supple, trachea midline. No JVD or lymphadenopathy. CARDIOVASCULAR: Regular rate and rhythm without murmurs, gallops, or rubs. RESPIRATORY: Breath sounds equal bilaterally. No accessory muscle use. GASTROINTESTINAL: Abdomen soft, non-tender, nondistended. MUSCULOSKELETAL: No cyanosis, or edema. Results - Labs CBC & Chem 7: 01/02/18 06:54 01/02/18 06:54 Microbiology 01/01/18 09:00 Sputum - Expectorated Sputum Gram Stain - Final 01/01/18 09:00 Sputum - Expectorated Sputum Sputum Culture - Final Heavy growth normal respiratory dannielle 12/31/17 12:00 Blood - Peripheral Aerobic Blood Culture - Preliminary No growth in 3 days 12/31/17 12:00 Blood - Peripheral Anaerobic Blood Culture - Final QNS - See aerobic report. 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 His blood pressure improved and he was transferred to the Hospitalist service. Hypotension, ? secondary to septic shock versus early illicit drug overdose: - Resolved after IV hydration - Concern for bacteremia or endocarditis in known active IVDU -A 2D echocardiogram is read as "mobile echodensity is noted on the mitral valve consistent with vegetation". However all of his blood cultures has been negative. He is currently asymptomatic. I discussed with infectious disease. Will obtain FANNIE to better evaluate echodensity noted on 2D echocardiogram. -Stop empiric antibiotics and repeat blood cultures x3 per ID. History of IV drug use -methamphetamines - Patient counseled. - No signs of withdrawal. All narcotics have been discontinued Tobaccoism - Patient counseled Hepatitis C LFT is within normal limits Outpatient eval is recommended Prophylaxis -GI -pantoprazole -DVT -SCDs/heparin subcu
--- NOTE | 2018-01-03 15:20 | MB ---
cc: Colin Vasquez MD DATE: 01/03/2018 DATE OF CONSULTATION: 01/03/2018 REQUESTING PHYSICIAN: Dr. Soria. REASON: Mitral valve vegetation in patient with IVDU. Negative blood culture. HISTORY OF PRESENT ILLNESS: This is a 32-year-old white male who presented to the emergency department with respiratory symptoms. The patient noted having cough and cold symptoms along with body aches and fever. He had low-grade fever of 100.1 degrees in the emergency department. The patient noted that his symptoms started the day before presenting to the emergency department. He came in on 12/31/2017. He notes that his girlfriend with whom he shares needle, developed an abscess of her hand. Reportedly, last use methamphetamine the day before coming to the emergency department. Currently, he is very sleepy, but denies chills or nausea. He stated that he had some chills yesterday. He denies chest pain, backache or shortness of breath. Since admission, his temperature has been normal. Blood cultures were taken and all of the blood cultures so far have no growth after 3 days. Influenza testing negative. Sputum culture has no growth. Chest x-ray was performed on admission and showed no acute cardiopulmonary disease. The patient's white blood cell count was elevated at 15.0 on admission and came down the following day to 7.7 and has remained normal. He is currently on IV antibiotics. The patient denies prior history of infection associated with IV drugs. He has been using IV drugs for some time now. A 2D echocardiogram performed on 01/01/2018 and revealed a mobile echodensity on the mitral valve, which is felt consistent with vegetation. Mild mitral valve regurgitation is also noted. PAST MEDICAL HISTORY: Hepatitis C. The patient denies all other medical illnesses. ALLERGIES: NO KNOWN DRUG ALLERGIES. MEDICATIONS: 1. Vancomycin. 2. Piperacillin/tazobactam 3. Protonix. 4. Pepcid . SOCIAL HISTORY: The patient works off and on doing "[employer]". Positive tobacco use. Positive alcohol use. Positive illicit drug use. FAMILY HISTORY: Noncontributory. REVIEW OF SYSTEMS: All systems have been reviewed and pertinents mentioned in history of present illness. PHYSICAL EXAMINATION: GENERAL: This is a slender male who is very somnolent. He is in no acute distress. VITAL SIGNS: Include temperature of 97.7, BP 108/54, respirations 18, heart rate 54. HEENT: Head is atraumatic. Extraocular movements are grossly intact. Pupils reactive to light. No icterus. Oropharynx moist mucosa without lesions. NECK: Supple without adenopathy. LUNGS: Clear to auscultation. HEART: Regular rate and rhythm without murmurs, rubs or gallops. ABDOMEN: Bowel sounds present. Soft, nontender. RECTAL: Not performed. EXTREMITIES: No clubbing, cyanosis or edema. No embolic lesions. SKIN: No diffuse rash. The patient has multiple tattoos over the upper extremities. NEUROLOGIC: Nonfocal. PSYCHIATRIC: Patient is calm and cooperative. LABORATORY DATA: WBC 6.3, platelets 160, hemoglobin 12.7, 55% neutrophils, 27% lymphocytes, 12% monocytes. Creatinine 0.8, BUN 6, sodium 143. Liver function tests normal. IMPRESSION: 1. Abnormal echocardiogram with mitral valve vegetation with noted mitral valve vegetation. The patient presented with body aches and was noted to have low-grade fever and elevated white blood cell count with which quickly improved; however, blood cultures have remained negative. 2. Intravenous drug abuse. The patient does not have a stigmata of endocarditis. Blood cultures are also negative. It is not clear to me that he has endocarditis or needs treatment for such, particularly in the absence of positive blood cultures. RECOMMENDATIONS: 1. Repeat blood x3. 2. Stop antibiotics. 3. Monitor temperature. 4 Order FANNIE to further evaluate the lesion noted on the mitral valve. 5. Monitor for new signs of symptomatology or evidence of endocarditis. The patient presented with respiratory symptoms; chest x-ray has been negative and certainly could be possible that his elevated white blood cell count and fever was due to respiratory infections. Thank you for this consultation. I will follow the patient's progress with you and we will make further recommendations upon followup as necessary. MD BOBO Pina/[place] , 01:27 PM , 01:42 PM
[2018-01-04] MEDS: Chlorhexidine Gluconate 2% 1 Pack (2 Cloths) TOPICAL SCH (04:44)
[2018-01-04] MEDS: Famotidine 20 MG Tablet PO SCH ×2 (08:44→21:58)
[2018-01-04] MEDS: Senna/Docusate Sodium 8.6/50 MG Tablet PO SCH ×2 (08:44→21:58)
[2018-01-04] MEDS: Famotidine PF Inj 20 MG/2 ML Vial IV.PUSH SCH ×2 (08:45→21:58)
[2018-01-04] MEDS: Pantoprazole Inj 40 MG Vial IV.PUSH SCH (08:45)
[2018-01-04] MEDS: Heparin - SQ 10,000 UNITS/ML Vial SQ SCH ×2 (08:45→21:56)
[2018-01-04 11:04] LABS: Hematocrit 43.7 % (39.0-51.0); Hemoglobin 15.1 gm/dL (13.0-17.0); Mean Corpuscular HGB Conc 34.5 % (32.0-36.0); Mean Corpuscular Volume 87.1 fL (80.0-100.0); Mean Platelet Volume 7.7 fL (7.0-11.0); Platelet Count 269 th/mm3 (150-450); Red Blood Count 5.02 mil/mm3 (4.50-5.90); Red Cell Distribution Width 13.8 % (11.6-17.2); White Blood Count 6.7 th/mm3 (4.0-11.0)
--- NOTE | 2018-01-04 12:52 | P.PNID ---
Subjective Remarks: Patient says he feels okay. No fever or chills. Denies night sweats. Blood culture has no growth. 32-year-old white male who presented to the emergency department with respiratory symptoms. The patient noted having cough and cold symptoms along with body aches and fever. He had low-grade fever of 100.1 degrees in the emergency department. The patient noted that his symptoms started the day before presenting to the emergency department. He came in on 12/31/2017. He last use methamphetamine the day before coming to the emergency department. A 2D echocardiogram performed on 01/01/2018 and revealed a mobile echodensity on the mitral valve, which is felt consistent with vegetation. Mild mitral valve regurgitation is also noted. Past Medical History: PAST MEDICAL HISTORY: Hepatitis C. The patient denies all other medical illnesses. Allergies/Adverse Reactions: Allergies No Known Allergies Allergy (Verified 12/31/17 11:29) Objective Vital Signs 01/03/18 16:00 01/03/18 19:45 01/03/18 20:00 Temperature 98.3 F 98 F Pulse Rate 58 L 59 L 52 L Respiratory Rate 18 18 Blood Pressure 102/56 L 106/62 Pulse Oximetry 95 97 01/04/18 00:00 01/04/18 04:00 01/04/18 08:00 Temperature 98 F 98 F 97.7 F Pulse Rate 60 57 L 47 L Respiratory Rate 18 18 16 Blood Pressure 110/65 100/55 L 107/55 L Pulse Oximetry 99 97 98 01/04/18 08:22 01/04/18 12:00 Temperature 97.9 F Pulse Rate 57 L Respiratory Rate 16 Blood Pressure 106/56 L Pulse Oximetry 96 97 Intake & Output 01/03/18 01/04/18 01/04/18 18:59 06:59 18:59 Intake Total 1415 / 1415 663 / 663 Balance 1415 / 1415 663 / 663 Weight 77.5 kg Intake: IV 1415 / 1415 NS Inj 1,000 ML @ 84 mls/hr IV. 800 / 800 CONT .[id number] [facility] Rx#:[id number] Zosyn 4.5 GM Premix 4.5 gm In 100 / 100 100 ml @ 200 mls/hr IV.SIG Q6H [facility] Rx#:[id number] Vancomycin Inj 1,500 MG In NS 515 / 515 Inj 500 ML @ 250 mls/hr IV.SIG Q8H [facility] Rx#:[id number] Oral 663 / 663 Other: # Voids 3 Date of Last Bowel Movement 01/03/18 01/03/18 01/03/18 13:50 Blood - Peripheral Aerobic Blood Culture - Preliminary No growth in 1 day 01/03/18 13:50 Blood - Peripheral Anaerobic Blood Culture - Preliminary No growth in 1 day 01/03/18 13:45 Blood - Peripheral Aerobic Blood Culture - Preliminary No growth in 1 day 01/03/18 13:45 Blood - Peripheral Anaerobic Blood Culture - Preliminary No growth in 1 day 01/03/18 14:28 Blood - Peripheral Aerobic Blood Culture - Preliminary No growth in 1 day 01/03/18 14:28 Blood - Peripheral Anaerobic Blood Culture - Preliminary No growth in 1 day 12/31/17 12:00 Blood - Peripheral Aerobic Blood Culture - Preliminary No growth in 4 days 12/31/17 12:00 Blood - Peripheral Anaerobic Blood Culture - Final QNS - See aerobic report. 12/31/17 12:09 Blood - Peripheral Aerobic Blood Culture - Preliminary No growth in 4 days 12/31/17 12:09 Blood - Peripheral Anaerobic Blood Culture - Preliminary No growth in 4 days 01/01/18 09:00 Sputum - Expectorated Sputum Gram Stain - Final 01/01/18 09:00 Sputum - Expectorated Sputum Sputum Culture - Final Heavy growth normal respiratory dannielle Lab - Hematology Results 01/04/18 10:23 WBC 6.7 RBC 5.02 Hgb 15.1 Hct 43.7 MCV 87.1 MCH 30.0 MCHC 34.5 RDW 13.8 Plt Count 269 D MPV 7.7 Lab - Chemistry Results 01/02/18 12:30 Lactic Acid 1.5 Imaging: ITS Impressions Chest X-Ray 01/02/18 06:00 CONCLUSION: No acute cardiopulmonary disease identified. Physical Exam: PHYSICAL EXAMINATION: GENERAL: This is a slender male who is very somnolent. He is in no acute distress. HEENT: Head is atraumatic. Extraocular movements are grossly intact. Pupils reactive to light. No icterus. Oropharynx moist mucosa without lesions. NECK: Supple without adenopathy. LUNGS: Clear to auscultation. HEART: Regular rate and rhythm without murmurs, rubs or gallops. ABDOMEN: Bowel sounds present. Soft, nontender. EXTREMITIES: No clubbing, cyanosis or edema. No embolic lesions. SKIN: No diffuse rash. The patient has multiple tattoos over the upper extremities. NEUROLOGIC: Nonfocal. PSYCHIATRIC: Calm and cooperative. Assessment and Plan - Plan IMPRESSION: 1. Abnormal echocardiogram with mitral valve vegetation with noted mitral valve vegetation. The patient presented with body aches and was noted to have low-grade fever and elevated white blood cell count with which quickly improved; however, blood cultures have remained negative. The vegetation may be old and sterile. 2. Intravenous drug abuse. The patient does not have a stigmata of endocarditis. Blood cultures are also negative. It is not clear to me that he has endocarditis or needs treatment for such, particularly in the absence of positive blood cultures. RECOMMENDATIONS: Follow the blood culture and if negative at 72 hours patient can be discharged. Monitor for new signs of symptomatology or evidence of endocarditis.
--- NOTE | 2018-01-04 17:27 | P.PNIM ---
Subjective Interval history: Patient reports he is feeling ok. No fevers or chills. Physical Exam Vital signs: Vital Signs 01/03/18 19:45 01/03/18 20:00 01/04/18 00:00 Temperature 98 F 98 F Pulse Rate 59 L 52 L 60 Respiratory Rate 18 18 Blood Pressure 106/62 110/65 Pulse Oximetry 97 99 01/04/18 04:00 01/04/18 08:00 01/04/18 08:22 Temperature 98 F 97.7 F Pulse Rate 57 L 47 L Respiratory Rate 18 16 Blood Pressure 100/55 L 107/55 L Pulse Oximetry 97 98 96 01/04/18 12:00 01/04/18 16:00 Temperature 97.9 F 97.7 F Pulse Rate 54 L 57 L Respiratory Rate 16 17 Blood Pressure 106/56 L 108/55 L Pulse Oximetry 97 96 Intake & Output 01/03/18 01/04/18 01/04/18 18:59 06:59 18:59 Intake Total 1415 / 1415 663 / 663 Balance 1415 / 1415 663 / 663 Weight 77.5 kg Intake: IV 1415 / 1415 NS Inj 1,000 ML @ 84 mls/hr IV. 800 / 800 CONT .[id number] [facility] Rx#:[id number] Zosyn 4.5 GM Premix 4.5 gm In 100 / 100 100 ml @ 200 mls/hr IV.SIG Q6H [facility] Rx#:[id number] Vancomycin Inj 1,500 MG In NS 515 / 515 Inj 500 ML @ 250 mls/hr IV.SIG Q8H [facility] Rx#:[id number] Oral 663 / 663 Other: # Voids 3 Date of Last Bowel Movement 01/03/18 01/03/18 Narrative: GENERAL: No acute distress. SKIN: Multiple track valdivia. HEAD: Normocephalic. EYES: No scleral icterus. No injection or drainage. NECK: Supple, trachea midline. No JVD or lymphadenopathy. CARDIOVASCULAR: Regular rate and rhythm without murmurs, gallops, or rubs. RESPIRATORY: Breath sounds equal bilaterally. No accessory muscle use. GASTROINTESTINAL: Abdomen soft, non-tender, nondistended. MUSCULOSKELETAL: No cyanosis, or edema. Results - Labs CBC & Chem 7: 01/04/18 10:23 01/02/18 06:54 Laboratory Results - last 24 hr 01/04/18 10:23 WBC 6.7 RBC 5.02 Hgb 15.1 Hct 43.7 MCV 87.1 MCH 30.0 MCHC 34.5 RDW 13.8 Plt Count 269 D MPV 7.7 Microbiology 01/03/18 13:50 Blood - Peripheral Aerobic Blood Culture - Preliminary No growth in 1 day 01/03/18 13:50 Blood - Peripheral Anaerobic Blood Culture - Preliminary No growth in 1 day 01/03/18 13:45 Blood - Peripheral Aerobic Blood Culture - Preliminary No growth in 1 day 01/03/18 13:45 Blood - Peripheral Anaerobic Blood Culture - Preliminary No growth in 1 day 01/03/18 14:28 Blood - Peripheral Aerobic Blood Culture - Preliminary No growth in 1 day 01/03/18 14:28 Blood - Peripheral Anaerobic Blood Culture - Preliminary No growth in 1 day 12/31/17 12:00 Blood - Peripheral Aerobic Blood Culture - Preliminary No growth in 4 days 12/31/17 12:00 Blood - Peripheral Anaerobic Blood Culture - Final QNS - See aerobic report. 12/31/17 12:09 Blood - Peripheral Aerobic Blood Culture - Preliminary No growth in 4 days 12/31/17 12:09 Blood - Peripheral Anaerobic Blood Culture - Preliminary No growth in 4 days Assessment and Plan - Plan 32 Y/O male IVDU admitted with hypotension, concerning for septic shock to the department helper. His blood pressure improved and he was transferred to the Hospitalist service. Hypotension, ? secondary to septic shock versus early illicit drug overdose: - Resolved after IV hydration - Concern for bacteremia or endocarditis in known active IVDU -A 2D echocardiogram is read as "mobile echodensity is noted on the mitral valve consistent with vegetation". However all of his blood cultures has been negative. He is currently asymptomatic. Cardiology indicates no need for FANNIE as we already see the echodensity with the 2d echo. -Empiric antibiotics discontinued and repeat blood cultures x3 per ID. - Follow blood cultures. If negative, the patient can be discharged. - Suspicion for endocarditis or bacteremia is low at this point. History of IV drug use -methamphetamines - Patient counseled. - No signs of withdrawal. All narcotics have been discontinued Tobaccoism - Patient counseled Hepatitis C LFT is within normal limits Outpatient eval is recommended Prophylaxis -GI -pantoprazole -DVT -SCDs/heparin subcu
[2018-01-05] MEDS: Chlorhexidine Gluconate 2% 1 Pack (2 Cloths) TOPICAL SCH (05:43)
[2018-01-05 08:09] VITALS: RESP 18; TEMP 97.6
[2018-01-05] MEDS: Famotidine 20 MG Tablet PO SCH (09:08)
[2018-01-05] MEDS: Heparin - SQ 10,000 UNITS/ML Vial SQ SCH (09:08)
[2018-01-05] MEDS: Pantoprazole Inj 40 MG Vial IV.PUSH SCH (09:09)
[2018-01-05] MEDS: Senna/Docusate Sodium 8.6/50 MG Tablet PO SCH (09:09)
[2018-01-05] MEDS: Famotidine PF Inj 20 MG/2 ML Vial IV.PUSH SCH (09:09)
[2018-01-05 12:45] VITALS: BP 108/61; PULSE 66; O2SAT 98
--- NOTE | 2018-01-05 13:07 | P.DS ---
Date of admission: 12/31/17 15:01 Primary care physician: No Primary Care Physician Brief History from admission: HPI from the admitting physician This is a 32 year old male. Date of admission 12/29/2017. Past medical history includes hepatitis C/currently untreated. Today presented to [facility] ED with somatic complaints of nonproductive cough and cold symptoms with fever and body aches. He says this started yesterday. He has not taken anything for his symptoms. He says his girlfriend was sick with similar symptoms and was actually admitted to the hospital overnight. He says he has some pain to his chest when coughing. He denies abdominal pain, nausea or vomiting. He does admit to IVDA. He last used meth yesterday. There are track valdivia in his left upper extremity in the antecubital regions. These are not erythematous or warm. He denies any shortness of breath. Severity is moderate Chest x-ray revealed no acute cardiopulmonary findings. White blood cell count was 15,000. Lactate was 1.7. Patient received ceftriaxone and vancomycin in the ED. Patient was hypotensive and received 3 L normal saline with a current blood pressure 112/69. He currently feels better at the present time. We are asked to evaluate Patient update on day of discharge: Patient reports he is feeling great. He wants to be discharged. He has no complaints. 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 His blood pressure improved and he was transferred to the Hospitalist service. Hypotension, ? secondary to septic shock versus early illicit drug overdose: - Resolved after IV hydration - Concern for bacteremia or endocarditis in known active IVDU -A 2D echocardiogram is read as "mobile echodensity is noted on the mitral valve consistent with vegetation". However all of his blood cultures has been negative. He is currently asymptomatic. Cardiology indicates no need for FANNIE as we already see the echodensity with the 2d echo. -Empiric antibiotics discontinued and repeat blood cultures x3 per ID. All negative at day2. Discussed with ID. Low suspicion for endocarditis at this point. Patient deemed stable for discharge. His blood cultures will be followed and if late positive cultures he will be called back into the Hospital. This was explained to the patient and he gave a good phone number to reach him. History of IV drug use -methamphetamines - Patient counseled. - No signs of withdrawal. All narcotics have been discontinued Tobaccoism - Patient counseled Hepatitis C LFT is within normal limits Outpatient eval is recommended - Time Spent with Patient Total time spent providing and/or coordinating discharge services: Less than 30 minutes - Quality: VTE Deep Vein Thrombosis/Pulmonary Embolism Present on Admission: No Exam Vital signs: Vital Signs 01/04/18 16:00 01/04/18 20:00 01/04/18 20:09 Temperature 97.7 F 98.0 F Pulse Rate 57 L 47 L Respiratory Rate 17 19 Blood Pressure 108/55 L 108/57 L Pulse Oximetry 96 94 L 97 01/04/18 23:50 01/05/18 00:00 01/05/18 04:00 Temperature 97.9 F 97.7 F Pulse Rate 64 64 66 Respiratory Rate 16 16 Blood Pressure 108/51 L 106/53 L Pulse Oximetry 96 97 01/05/18 08:00 01/05/18 09:27 01/05/18 12:00 Temperature 97.6 F 97.6 F Pulse Rate 49 L 66 Respiratory Rate 18 18 Blood Pressure 103/65 108/61 Pulse Oximetry 97 97 98 Intake & Output 01/04/18 01/05/18 01/05/18 18:59 06:59 18:59 Intake Total 840 / 840 663 / 663 Balance 840 / 840 663 / 663 Intake: Oral 840 / 840 663 / 663 Other: # Voids 3 1 Date of Last Bowel Movement 01/04/18 01/04/18 # Bowel Movements 1 Narrative: GENERAL: No acute distress. SKIN: Multiple track valdivia. HEAD: Normocephalic. EYES: No scleral icterus. No injection or drainage. NECK: Supple, trachea midline. No JVD or lymphadenopathy. CARDIOVASCULAR: Regular rate and rhythm without murmurs, gallops, or rubs. RESPIRATORY: Breath sounds equal bilaterally. No accessory muscle use. GASTROINTESTINAL: Abdomen soft, non-tender, nondistended. MUSCULOSKELETAL: No cyanosis, or edema. Results Procedures completed during hospitalization: None Labs on day of discharge: Preliminary micro results at discharge 01/03/18 13:50 Aerobic Blood Culture - Preliminary Blood - Peripheral No growth in 2 days Anaerobic Blood Culture - Preliminary No growth in 2 days 01/03/18 13:45 Aerobic Blood Culture - Preliminary Blood - Peripheral No growth in 2 days Anaerobic Blood Culture - Preliminary No growth in 2 days 01/03/18 14:28 Aerobic Blood Culture - Preliminary Blood - Peripheral No growth in 2 days Anaerobic Blood Culture - Preliminary No growth in 2 days - Impressions ITS Impressions Chest X-Ray 01/02/18 06:00 CONCLUSION: No acute cardiopulmonary disease identified. Discharge Plan - Discharge Disposition Patient Disposition: Discharge Home - Discharge Condition Condition: Stable - Discharge Order Discharge Orders: Discharge Order (Routine); Ordered 01/05/18 Ordered By: Steven Soria - Physicians Team Primary Care Provider: Primary Care Liz Corrales Attending Provider: Steven Soria Other Providers: Colin Vasquez MD
== END 2018-01-05 15:02 | disposition home or self-care (01) ==
LOC: NEPD 09:58 → NEDA 15:01 → HCVI 15:25 → N04 01-01 17:14
PROVIDERS: ADMIT Family Medicine; ATTEND Family Medicine